=== PATIENT | male | born 1935 ===

== ENCOUNTER 2018-09-29 07:46 | Day surgery (SDC) | payer MEDICARE ==
[~2018-09-29] VITALS: Ht 177.8 cm; Wt 82.7 kg
[~2018-09-29 07:46] MED LIST: AMLO5; Alph-E-Mixed400 UNIT; CHOL10002; FINA5; FISH OIL 1,4001 EACH; FLONASE ALLERG9.9 ML; GLUCOSAMINE &1 EACH; Hair, Skin & N1 EACH; MAGOXI400; MOME.1TO; SILDENAFIL20 MG; Xalatan2.5 ML
== END 2018-09-29 10:04 | disposition home or self-care (01) ==
LOC: ORSCSDS 07:46
PROVIDERS: Internal Medicine Gastroenterology
PROC: 0DBK8ZX Excision of Ascending Colon, Via Natural or Artificial Opening Endoscopic, Diagnostic (ICD-10-PCS; principal; 2018-09-29 09:15)
PROC: 0DBH8ZX Excision of Cecum, Via Natural or Artificial Opening Endoscopic, Diagnostic (ICD-10-PCS; principal; 2018-09-29 09:15)
DX: Z12.11 Encounter for screening for malignant neoplasm of colon (principal); D12.0 Benign neoplasm of cecum; D12.2 Benign neoplasm of ascending colon; K57.30 Diverticulosis of large intestine without perforation or abscess without bleeding; K64.1 Second degree hemorrhoids; I10 Essential (primary) hypertension; E78.2 Mixed hyperlipidemia; Z79.899 Other long term (current) drug therapy
CPT/HCPCS: 88305; J0461; J1980; J2405; J2704; J7120